=== PATIENT | female | born 1945 | race Caucasian/White ===

== ENCOUNTER 2017-09-21 11:24 | Emergency (ER) | payer MEDICARE, BC ==
--- NOTE | 2017-09-21 11:58 | ED ---
General Adult HPI - General Chief complaint: Recheck/Abnormal Lab/Rx Stated complaint: HIGH BLOOD PRESSURE Time Seen by Provider: 09/21/17 11:25 Source: patient, RN notes reviewed Mode of arrival: ambulatory Limitations: no limitations - History of Present Illness Initial comments: This is a 72-year-old female presents emergency department with past medical history significant for cardiac stent placement. Patient states she comes in today because she has been monitoring her blood pressure and it was elevated today. Patient states she was asymptomatic. Patient denies any chest pain or palpitations. Patient denies any headache patient denies blurred vision patient denies any numbness weakness. Patient denies any recent fever chills or cough. Patient states she has been fighting a little bit of a sinus infection. Patient denies any abdominal pain patient denies nausea vomiting. Patient denies any recent injury or trauma. - Related Data Home Medications Medication Instructions Recorded Confirmed ALPRAZolam [Xanax] 0.25 mg PO HS PRN 09/13/15 09/21/17 Aspirin [Adult Low Dose Aspirin EC] 81 mg PO DAILY 09/13/15 09/21/17 Carvedilol [Coreg] 3.125 mg PO BID 09/13/15 09/21/17 Docusate Sodium [Dok] 100 mg PO HS PRN 09/13/15 09/21/17 L.acidoph,Paracasei, B.lactis 1 tab PO DAILY 09/13/15 09/21/17 [Probiotic] Ubidecarenone [Co Q-10] 100 mg PO DAILY 09/13/15 09/21/17 Vit A/Vit C/Vit E/Zinc/Copper 1 tab PO DAILY 09/13/15 09/21/17 [ICAPS SOFTGEL] Atorvastatin [Lipitor] 40 mg PO DAILY 09/21/17 09/21/17 Escitalopram [Lexapro] 20 mg PO DAILY 09/21/17 09/21/17 Magnesium Oxide [Mag-Ox] 400 mg PO DAILY 09/21/17 09/21/17 Nitroglycerin Sl Tabs [Nitrostat] 0.4 mg SUBLINGUAL Q5M PRN 09/21/17 09/21/17 Ticagrelor [Brilinta] 90 mg PO BID 09/21/17 09/21/17 Vitamin D3 1600u/Calcium 1200u 2 tab PO DAILY 09/21/17 09/21/17 Previous Rx's Medication Instructions Recorded Lisinopril [Zestril] 10 mg PO DAILY #7 tab 09/21/17 Allergies Allergy/AdvReac Type Severity Reaction Status Date / Time hydromorphone HCl Allergy Nausea & Verified 09/21/17 12:36 [From Dilaudid] Vomiting ketorolac tromethamine Allergy Rash/Hives Verified 09/21/17 12:36 [From Toradol] shellfish derived [Shellfish] Allergy Itching Verified 09/21/17 12:36 levofloxacin [From Levaquin] AdvReac Rash/Hives Verified 09/21/17 12:36 Review of Systems ROS Statement: Those systems with pertinent positive or pertinent negative responses have been documented in the HPI. ROS Other: All systems not noted in ROS Statement are negative. Past Medical History Past Medical History: Hyperlipidemia, Hypertension Additional Past Medical History / Comment(s): HX OF STRESS INDUCED CARDIOMYOPATHY, HX OF STOMACH ULCER, CURRENT ABDOMINAL PAIN History of Any Multi-Drug Resistant Organisms: None Reported Past Surgical History: Back Surgery, Bladder Surgery, Heart Catheterization Additional Past Surgical History / Comment(s): LEFT KIDNEY SX R/T CONGENITAL BLOCKAGE, GUM SX, EGD Past Anesthesia/Blood Transfusion Reactions: No Reported Reaction Past Psychological History: Anxiety Smoking Status: Former smoker Past Alcohol Use History: Occasional Past Drug Use History: None Reported General Exam - General Exam Comments Initial Comments: GENERAL: Patient is well-developed and well-nourished. Patient is nontoxic and well- hydrated and is in no acute distress. ENT: Neck is soft and supple. No significant lymphadenopathy is noted. Oropharynx is clear. Moist mucous membranes. Neck has full range of motion without eliciting any pain. EYES: The sclera were anicteric and conjunctiva were pink and moist. Extraocular movements were intact and pupils were equal round and reactive to light. Eyelids were unremarkable. PULMONARY: Unlabored respirations. Good breath sounds bilaterally. No audible rales rhonchi or wheezing was noted. CARDIOVASCULAR: There is a regular rate and rhythm without any murmurs gallops or rubs. ABDOMEN: Soft and nontender with normal bowel sounds. No palpable organomegaly was noted. There is no palpable pulsatile mass. SKIN: Skin is clear with no lesions or rashes and otherwise unremarkable. NEUROLOGIC: Patient is alert and oriented x3. Cranial nerves II through XII are grossly intact. Motor and sensory are also intact. Normal speech, volume and content. Symmetrical smile. MUSCULOSKELETAL: Normal extremities with adequate strength and full range of motion. No lower extremity swelling or edema. No calf tenderness. LYMPHATICS: No significant lymphadenopathy is noted PSYCHIATRIC: Normal psychiatric evaluation. Normal interpersonal interactions appears functionally intact in deals appropriately with others. No signs of depression. No signs of anxiety. Limitations: no limitations Course Vital Signs 09/21/17 09/21/17 09/21/17 11:46 12:07 13:00 Temperature 98.3 F Pulse Rate 62 67 57 L Respiratory 16 18 16 Rate Blood Pressure 183/88 168/89 173/92 O2 Sat by Pulse 99 96 98 Oximetry 09/21/17 13:56 Temperature Pulse Rate 63 Respiratory 16 Rate Blood Pressure 159/65 O2 Sat by Pulse 99 Oximetry Medical Decision Making - Medical Decision Making EKG shows sinus bradycardia 59 bpm [place] interval is 182 QRS is 90 QT interval 410 QTC is 45. Patient's EKG shows no ST segment elevation or depression or T wave abnormalities are noted. Chest x-ray shows no acute abnormality. Patient's blood pressure came down some hydralazine. Patient is asymptomatic. - Lab Data Result diagrams: 09/21/17 12:05 09/21/17 12:05 Lab Results 09/21/17 09/21/17 09/21/17 Range/Units 12:05 12:05 12:05 WBC 3.6 L (3.8-10.6) k/uL RBC 4.15 (3.80-5.40) m/uL Hgb 13.6 (11.4-16.0) gm/dL Hct 41.8 (34.0-46.0) % MCV 100.8 H (80.0-100.0) fL MCH 32.8 (25.0-35.0) pg MCHC 32.6 (31.0-37.0) g/dL RDW 13.6 (11.5-15.5) % Plt Count 165 (150-450) k/uL Neutrophils % 61 % Lymphocytes % 25 % Monocytes % 8 % Eosinophils % 3 % Basophils % 1 % Neutrophils # 2.2 (1.3-7.7) k/uL Lymphocytes # 0.9 L (1.0-4.8) k/uL Monocytes # 0.3 (0-1.0) k/uL Eosinophils # 0.1 (0-0.7) k/uL Basophils # 0.0 (0-0.2) k/uL PT (9.0-12.0) sec INR (<1.2) APTT (22.0-30.0) sec Sodium 137 (137-145) mmol/L Potassium 4.6 (3.5-5.1) mmol/L Chloride 102 (98-107) mmol/L Carbon Dioxide 27 (22-30) mmol/L Anion Gap 8 mmol/L BUN 16 (7-17) mg/dL Creatinine 0.67 (0.52-1.04) mg/dL Est GFR (MDRD) Af Amer >60 (>60 ml/min/1.73 sqM) Est GFR (MDRD) Non-Af >60 (>60 ml/min/1.73 sqM) Glucose 106 H (74-99) mg/dL Calcium 9.7 (8.4-10.2) mg/dL Magnesium 1.9 (1.6-2.3) mg/dL Total Bilirubin 1.0 (0.2-1.3) mg/dL AST 31 (14-36) U/L ALT 38 (9-52) U/L Alkaline Phosphatase 80 (38-126) U/L Total Creatine Kinase 50 (30-135) U/L CK-MB (CK-2) 1.0 (0.0-2.4) ng/mL CK-MB (CK-2) Rel Index 2.0 Troponin I <0.012 (0.000-0.034) ng/mL Total Protein 6.9 (6.3-8.2) g/dL Albumin 4.1 (3.5-5.0) g/dL 09/21/17 Range/Units 12:05 WBC (3.8-10.6) k/uL RBC (3.80-5.40) m/uL Hgb (11.4-16.0) gm/dL Hct (34.0-46.0) % MCV (80.0-100.0) fL MCH (25.0-35.0) pg MCHC (31.0-37.0) g/dL RDW (11.5-15.5) % Plt Count (150-450) k/uL Neutrophils % % Lymphocytes % % Monocytes % % Eosinophils % % Basophils % % Neutrophils # (1.3-7.7) k/uL Lymphocytes # (1.0-4.8) k/uL Monocytes # (0-1.0) k/uL Eosinophils # (0-0.7) k/uL Basophils # (0-0.2) k/uL PT 9.8 (9.0-12.0) sec INR 1.0 (<1.2) APTT 24.7 (22.0-30.0) sec Sodium (137-145) mmol/L Potassium (3.5-5.1) mmol/L Chloride (98-107) mmol/L Carbon Dioxide (22-30) mmol/L Anion Gap mmol/L BUN (7-17) mg/dL Creatinine (0.52-1.04) mg/dL Est GFR (MDRD) Af Amer (>60 ml/min/1.73 sqM) Est GFR (MDRD) Non-Af (>60 ml/min/1.73 sqM) Glucose (74-99) mg/dL Calcium (8.4-10.2) mg/dL Magnesium (1.6-2.3) mg/dL Total Bilirubin (0.2-1.3) mg/dL AST (14-36) U/L ALT (9-52) U/L Alkaline Phosphatase (38-126) U/L Total Creatine Kinase (30-135) U/L CK-MB (CK-2) (0.0-2.4) ng/mL CK-MB (CK-2) Rel Index Troponin I (0.000-0.034) ng/mL Total Protein (6.3-8.2) g/dL Albumin (3.5-5.0) g/dL Disposition Clinical Impression: Hypertension Disposition: HOME SELF-CARE Condition: Good Instructions: Hypertension (ED) Prescriptions: Lisinopril [Zestril] 10 mg PO DAILY #7 tab Referrals: Jose Cuenca DO [Primary Care Provider] - 1-2 days Time of Disposition: 14:00
[2017-09-21] MEDS: hydrALAZINE HCL 20 MG/ML 1 ML VIAL IVP STA ×3 (12:13→13:34)
[2017-09-21 12:20] LABS: Basophils % (A) 1 %; Eosinophils # (A) 0.1 k/uL (0-0.7); Eosinophils % (A) 3 %; HCT 41.8 % (34.0-46.0); HGB 13.6 gm/dL (11.4-16.0); Lymphocytes # (A) 0.9 k/uL (1.0-4.8); Lymphocytes % (A) 25 %; MCH 32.8 pg (25.0-35.0); MCHC 32.6 g/dL (31.0-37.0); MCV 100.8 fL (80.0-100.0); Mean Platelet Volume 7.9; Monocytes # (A) 0.3 k/uL (0-1.0); Monocytes % (A) 8 %; Neutrophils # (A) 2.2 k/uL (1.3-7.7); Neutrophils % (A) 61 %; Platelet Count 165 k/uL (150-450); RBC 4.15 m/uL (3.80-5.40); RDW 13.6 % (11.5-15.5); WBC 3.6 k/uL (3.8-10.6)
[2017-09-21 12:30] LABS: Partial Thromboplastin Time 24.7 sec (22.0-30.0); Prothrombin Time 9.8 sec (9.0-12.0)
[2017-09-21 12:32] LABS: ALT 38 U/L (9-52); AST 31 U/L (14-36); Albumin 4.1 g/dL (3.5-5.0); Alkaline Phosphatase 80 U/L (38-126); Anion Gap 8 mmol/L; Blood Urea Nitrogen 16 mg/dL (7-17); Calcium 9.7 mg/dL (8.4-10.2); Carbon Dioxide 27 mmol/L (22-30); Chloride 102 mmol/L (98-107); Glucose 106 mg/dL (74-99); Magnesium 1.9 mg/dL (1.6-2.3); Potassium 4.6 mmol/L (3.5-5.1); Sodium 137 mmol/L (137-145); Total Protein 6.9 g/dL (6.3-8.2)
[2017-09-21 12:44] LABS: Creatine Kinase 50 U/L (30-135)
[2017-09-21 12:57] LABS: Troponin I <0.012 ng/mL (0.000-0.034)
[2017-09-21 13:03] VITALS: RESP 16
--- NOTE | 2017-09-21 13:05 | XR ---
EXAMINATION TYPE: XR chest 2V DATE OF EXAM: 09/21/2017 COMPARISON: NONE HISTORY: Shortness of breath TECHNIQUE: Frontal and lateral views of the chest are obtained. FINDINGS: Scattered senescent parenchymal changes noted. Hyperinflation compatible with COPD. No evidence for infiltrate. No evidence for atelectasis. Heart size is stable. Mediastinal structures are stable and grossly unremarkable. No evidence for hilar prominence. Degenerative changes dorsal spine. IMPRESSION: 1. No evidence for acute pulmonary disease.
[2017-09-21 14:23] VITALS: BP 156/71; PULSE 79; TEMP 96.9
== END 2017-09-21 14:25 | disposition home or self-care (01) ==
LOC: EC 11:24
DX: I10 Essential (primary) hypertension (principal); R00.1 Bradycardia, unspecified; J32.9 Chronic sinusitis, unspecified; E78.5 Hyperlipidemia, unspecified; F41.9 Anxiety disorder, unspecified; Z87.891 Personal history of nicotine dependence; Z79.82 Long term (current) use of aspirin; Z79.899 Other long term (current) drug therapy; Z88.1 Allergy status to other antibiotic agents; Z88.5 Allergy status to narcotic agent; Z88.6 Allergy status to analgesic agent; Z91.013 Allergy to seafood; Z95.818 Presence of other cardiac implants and grafts
CPT/HCPCS: 36415; 93005; 80053; 82550; 82553; 83735; 84484; 85025; 85610; 85730; 71046; 99284; 96374; 96376 ×2; J0360

== ENCOUNTER → 2017-10-15 | Outpatient (CLI) | payer MEDICARE, BC ==
[2017-10-15 09:35] LABS: ALT 28 U/L (9-52); AST 26 U/L (14-36); Alkaline Phosphatase 67 U/L (38-126); Anion Gap 9 mmol/L; Bilirubin, Delta 0.2 mg/dL (0.0-0.2); Bilirubin,Unconjugated 0.2 mg/dL (0.0-1.1); Blood Urea Nitrogen 13 mg/dL (7-17); Calcium 8.9 mg/dL (8.4-10.2); Carbon Dioxide 31 mmol/L (22-30); Chloride 101 mmol/L (98-107); Cholesterol 185 mg/dL (<200); Glucose 88 mg/dL (74-99); HDL Cholesterol 59 mg/dL (40-60); LDL Cholesterol,Calculated 78 mg/dL (0-99); Potassium 4.3 mmol/L (3.5-5.1); Sodium 141 mmol/L (137-145); Total Bilirubin 0.4 mg/dL (0.2-1.3); Total Protein 6.8 g/dL (6.3-8.2); Triglycerides 241 mg/dL (<150)
== END | disposition home or self-care (01) ==
LOC: LABWHC1 08:41
PROVIDERS: ATTEND Internal Medicine
DX: E78.5 Hyperlipidemia, unspecified (principal); I25.10 Atherosclerotic heart disease of native coronary artery without angina pectoris
CPT/HCPCS: 36415; 80048; 80061; 80076; 83880

== ENCOUNTER → 2018-10-12 | Outpatient (CLI) | payer MEDICARE, BC ==
[2018-10-12 16:42] LABS: Bilirubin, Conjugated 0.2 mg/dL (0.20-0.40); Bilirubin,Unconjugated 0.7 mg/dL; LDL Cholesterol,Calculated 80.6 mg/dL (0.0-131.0); Total Bilirubin 0.9 mg/dL (0.2-1.2); VLDL Calculation 25.4 mg/dL (5.00-40.00)
== END | disposition home or self-care (01) ==
LOC: LABWHC1 08:16
PROVIDERS: ATTEND Internal Medicine
DX: E78.5 Hyperlipidemia, unspecified (principal)
CPT/HCPCS: 36415; 80061; 80076

== ENCOUNTER → 2019-01-24 | Outpatient (CLI) | payer MEDICARE, BC ==
[2019-01-24 18:46] LABS: T4, Free (Free Thyroxine) 0.9 ng/dL (0.80-1.80)
== END ==
LOC: LABWHC1 13:14
PROVIDERS: ATTEND Nurse Practitioner Adult Health
DX: R53.83 Other fatigue (principal)
CPT/HCPCS: 36415; 84439; 84443

== ENCOUNTER → 2019-10-11 | Outpatient (CLI) | payer MEDICARE, BC ==
[2019-10-11 17:36] LABS: ALT 24 U/L (8-44); AST 26 U/L (13-35); Albumin/Globulin Ratio 2.05 (1.60-3.17); Alkaline Phosphatase 82 U/L (41-126); Bilirubin, Conjugated <0.20 mg/dL (0.20-0.40); Chol/HDL Ratio 3.46; Cholesterol 204 mg/dL (0-200); LDL Cholesterol,Calculated 101.8 mg/dL (0.0-131.0); Total Bilirubin 0.7 mg/dL (0.2-1.2); Total Protein 6.1 g/dL (6.2-8.2)
== END | disposition home or self-care (01) ==
LOC: LABWHC1 08:13
PROVIDERS: ATTEND Internal Medicine
DX: E78.5 Hyperlipidemia, unspecified (principal)
CPT/HCPCS: 36415; 80061; 80076

== ENCOUNTER 2019-10-17 08:46 | Observation (INO) | payer MEDICARE, BC ==
[2019-10-17] MEDS ORDERED: NITROGLYCERIN OINT 1 INCH/GM PACKET TOPICAL STA (09:33)
[2019-10-17] MEDS ORDERED: ASPIRIN 81 MG PO STA (09:33)
--- NOTE | 2019-10-17 09:37 | ED ---
General Adult HPI - General Chief complaint: Chest Pain Stated complaint: Chest discomfort/cough Time Seen by Provider: 10/17/19 09:02 Source: patient, RN notes reviewed Mode of arrival: ambulatory Limitations: no limitations - History of Present Illness Initial comments: Patient is a pleasant 74-year-old female presenting to the emergency Department with complaints of chest discomfort. Onset of symptoms was this morning. Symptoms lasted less than a couple of hours. Discomfort is now hours ago. Patient had pressure in her chest with some radiation towards the right arm. No dyspnea or nausea or sweating. No history of similar symptoms previously. Discomfort is now resolved. Patient has had a mild cough and postnasal drip over the past couple of days. Patient had recent ALLERGY injection. - Related Data Home Medications Medication Instructions Recorded Confirmed ALPRAZolam [Xanax] 0.25 mg PO HS PRN 09/13/15 09/21/17 Aspirin [Adult Low Dose Aspirin EC] 81 mg PO DAILY 09/13/15 09/21/17 Carvedilol [Coreg] 3.125 mg PO BID 09/13/15 09/21/17 Docusate Sodium [Dok] 100 mg PO HS PRN 09/13/15 09/21/17 L.acidoph,Paracasei, B.lactis 1 tab PO DAILY 09/13/15 09/21/17 [Probiotic] Ubidecarenone [Co Q-10] 100 mg PO DAILY 09/13/15 09/21/17 Vit A/Vit C/Vit E/Zinc/Copper 1 tab PO DAILY 09/13/15 09/21/17 [ICAPS SOFTGEL] Atorvastatin [Lipitor] 40 mg PO DAILY 09/21/17 09/21/17 Escitalopram [Lexapro] 20 mg PO DAILY 09/21/17 09/21/17 Magnesium Oxide [Mag-Ox] 400 mg PO DAILY 09/21/17 09/21/17 Nitroglycerin Sl Tabs [Nitrostat] 0.4 mg SUBLINGUAL Q5M PRN 09/21/17 09/21/17 Ticagrelor [Brilinta] 90 mg PO BID 09/21/17 09/21/17 Vitamin D3 1600u/Calcium 1200u 2 tab PO DAILY 09/21/17 09/21/17 Previous Rx's Medication Instructions Recorded Lisinopril [Zestril] 10 mg PO DAILY #7 tab 09/21/17 Allergies Allergy/AdvReac Type Severity Reaction Status Date / Time hydromorphone HCl Allergy Nausea & Verified 10/17/19 08:53 [From Dilaudid] Vomiting ketorolac tromethamine Allergy Rash/Hives Verified 10/17/19 08:53 [From Toradol] shellfish derived [Shellfish] Allergy Itching Verified 10/17/19 08:53 levofloxacin [From Levaquin] AdvReac Rash/Hives Verified 10/17/19 08:53 Review of Systems ROS Statement: Those systems with pertinent positive or pertinent negative responses have been documented in the HPI. ROS Other: All systems not noted in ROS Statement are negative. Constitutional: Denies: fever Eyes: Denies: eye pain ENT: Denies: ear pain Respiratory: Reports: as per HPI, cough. Denies: dyspnea Cardiovascular: Reports: chest pain Endocrine: Denies: fatigue Gastrointestinal: Denies: abdominal pain Genitourinary: Denies: dysuria Musculoskeletal: Denies: back pain Skin: Denies: rash Neurological: Denies: weakness Past Medical History Past Medical History: Hyperlipidemia, Hypertension Additional Past Medical History / Comment(s): HX OF STRESS INDUCED CARDIOMYOPATHY, HX OF STOMACH ULCER, CURRENT ABDOMINAL PAIN History of Any Multi-Drug Resistant Organisms: None Reported Past Surgical History: Back Surgery, Bladder Surgery, Heart Catheterization, Heart Catheterization With Stent Additional Past Surgical History / Comment(s): LEFT KIDNEY SX R/T CONGENITAL BLOCKAGE, GUM SX, EGD Past Anesthesia/Blood Transfusion Reactions: No Reported Reaction Past Psychological History: Anxiety Smoking Status: Former smoker Past Alcohol Use History: None Reported Past Drug Use History: None Reported General Exam Limitations: no limitations General appearance: alert, in no apparent distress Head exam: Present: normocephalic Eye exam: Present: normal appearance Neck exam: Present: normal inspection Respiratory exam: Present: normal lung sounds bilaterally. Absent: chest wall tenderness Cardiovascular Exam: Present: regular rate, normal rhythm Expanded Peripheral pulses: 2+: Radial (R), Radial (L), Posterior Tibialis (R), Posterior Tibialis (L) GI/Abdominal exam: Present: soft. Absent: distended, tenderness Extremities exam: Present: normal inspection. Absent: pedal edema, calf tenderness Neurological exam: Present: alert Psychiatric exam: Present: normal affect, normal mood Skin exam: Present: normal color Course Vital Signs 10/17/19 10/17/19 08:53 10:00 Temperature 98.4 F Pulse Rate 94 87 Respiratory 18 18 Rate Blood Pressure 158/67 136/78 O2 Sat by Pulse 100 94 L Oximetry EKG Findings - EKG Comments: EKG Findings:: Normal sinus rhythm 84. [place] 180. QRS 90. QT 372. QTC 439. Normal axis. Normal QRS. No acute ST elevation. Medical Decision Making - Medical Decision Making Patient reevaluated and resting comfortably in bed. Patient updated on results and plan. Dr. Cuenca has been paged for admission of this patient. - Lab Data Result diagrams: 10/17/19 09:23 10/17/19 09:23 Lab Results 10/17/19 10/17/19 10/17/19 Range/Units 09:23 09:23 09:23 WBC 3.2 L (3.8-10.6) k/uL RBC 3.90 (3.80-5.40) m/uL Hgb 12.7 (11.4-16.0) gm/dL Hct 37.4 (34.0-46.0) % MCV 95.9 (80.0-100.0) fL MCH 32.5 (25.0-35.0) pg MCHC 33.9 (31.0-37.0) g/dL RDW 12.2 (11.5-15.5) % Plt Count 151 (150-450) k/uL Neutrophils % 68 % Lymphocytes % 14 % Monocytes % 11 % Eosinophils % 3 % Basophils % 2 % Neutrophils # 2.2 (1.3-7.7) k/uL Lymphocytes # 0.4 L (1.0-4.8) k/uL Monocytes # 0.3 (0-1.0) k/uL Eosinophils # 0.1 (0-0.7) k/uL Basophils # 0.1 (0-0.2) k/uL PT 9.6 (9.0-12.0) sec INR 0.9 (<1.2) APTT 25.5 (22.0-30.0) sec Sodium 133 L (137-145) mmol/L Potassium 4.2 (3.5-5.1) mmol/L Chloride 98 (98-107) mmol/L Carbon Dioxide 26 (22-30) mmol/L Anion Gap 9 mmol/L BUN 10 (7-17) mg/dL Creatinine 0.56 (0.52-1.04) mg/dL Est GFR (CKD-EPI)AfAm >90 (>60 ml/min/1.73 sqM) Est GFR (CKD-EPI)NonAf >90 (>60 ml/min/1.73 sqM) Glucose 114 H (74-99) mg/dL Calcium 9.1 (8.4-10.2) mg/dL Magnesium 1.7 (1.6-2.3) mg/dL Total Bilirubin 0.8 (0.2-1.3) mg/dL AST 30 (14-36) U/L ALT 20 (4-34) U/L Alkaline Phosphatase 72 (38-126) U/L Troponin I (0.000-0.034) ng/mL Total Protein 6.9 (6.3-8.2) g/dL Albumin 4.0 (3.5-5.0) g/dL 10/17/19 Range/Units 09:23 WBC (3.8-10.6) k/uL RBC (3.80-5.40) m/uL Hgb (11.4-16.0) gm/dL Hct (34.0-46.0) % MCV (80.0-100.0) fL MCH (25.0-35.0) pg MCHC (31.0-37.0) g/dL RDW (11.5-15.5) % Plt Count (150-450) k/uL Neutrophils % % Lymphocytes % % Monocytes % % Eosinophils % % Basophils % % Neutrophils # (1.3-7.7) k/uL Lymphocytes # (1.0-4.8) k/uL Monocytes # (0-1.0) k/uL Eosinophils # (0-0.7) k/uL Basophils # (0-0.2) k/uL PT (9.0-12.0) sec INR (<1.2) APTT (22.0-30.0) sec Sodium (137-145) mmol/L Potassium (3.5-5.1) mmol/L Chloride (98-107) mmol/L Carbon Dioxide (22-30) mmol/L Anion Gap mmol/L BUN (7-17) mg/dL Creatinine (0.52-1.04) mg/dL Est GFR (CKD-EPI)AfAm (>60 ml/min/1.73 sqM) Est GFR (CKD-EPI)NonAf (>60 ml/min/1.73 sqM) Glucose (74-99) mg/dL Calcium (8.4-10.2) mg/dL Magnesium (1.6-2.3) mg/dL Total Bilirubin (0.2-1.3) mg/dL AST (14-36) U/L ALT (4-34) U/L Alkaline Phosphatase (38-126) U/L Troponin I <0.012 (0.000-0.034) ng/mL Total Protein (6.3-8.2) g/dL Albumin (3.5-5.0) g/dL - Radiology Data Radiology results: image reviewed (Chest x-ray shows no acute pulmonary process. Some hyperinflation, correlate for COPD.) Disposition Clinical Impression: Chest pain Disposition: ADMITTED IP TO THIS HOSP Is patient prescribed a controlled substance at d/c from ED?: No Referrals: Jose Cuenca DO [Primary Care Provider] - 1-2 days Decision Time: 11:38
[2019-10-17] MEDS ORDERED: ACETAMINOPHEN TAB 500 MG TAB PO STA (09:43)
[2019-10-17 10:00] LABS: INR 0.9 (<1.2); Partial Thromboplastin Time 25.5 sec (22.0-30.0); Prothrombin Time 9.6 sec (9.0-12.0)
[2019-10-17 10:01] LABS: ALT 20 U/L (4-34); AST 30 U/L (14-36); African American GFR (CKD) >90 (>60 ml/min/1.73 sqM); Alkaline Phosphatase 72 U/L (38-126); Anion Gap 9 mmol/L; Blood Urea Nitrogen 10 mg/dL (7-17); Calcium 9.1 mg/dL (8.4-10.2); Carbon Dioxide 26 mmol/L (22-30); Chloride 98 mmol/L (98-107); Glucose 114 mg/dL (74-99); Magnesium 1.7 mg/dL (1.6-2.3); Non-African American GFR(CKD) >90 (>60 ml/min/1.73 sqM); Potassium 4.2 mmol/L (3.5-5.1); Sodium 133 mmol/L (137-145); Total Bilirubin 0.8 mg/dL (0.2-1.3); Total Protein 6.9 g/dL (6.3-8.2)
--- NOTE | 2019-10-17 10:07 | XR ---
EXAMINATION TYPE: XR chest 2V DATE OF EXAM: 10/17/2019 COMPARISON: 09/21/2017 INDICATION: Chest pain hypertension cough TECHNIQUE: Frontal and lateral views of the chest are obtained. FINDINGS: The heart size is normal. The pulmonary vasculature is normal. The lungs are clear. There may be some hyperinflation flattening the diaphragms. Correlate for COPD IMPRESSION: 1. No acute pulmonary process. 2. Correlate for COPD.
[2019-10-17 10:14] LABS: Basophils # (A) 0.1 k/uL (0-0.2); Basophils % (A) 2 %; Eosinophils # (A) 0.1 k/uL (0-0.7); Eosinophils % (A) 3 %; HCT 37.4 % (34.0-46.0); HGB 12.7 gm/dL (11.4-16.0); Lymphocytes # (A) 0.4 k/uL (1.0-4.8); Lymphocytes % (A) 14 %; MCH 32.5 pg (25.0-35.0); MCHC 33.9 g/dL (31.0-37.0); MCV 95.9 fL (80.0-100.0); Mean Platelet Volume 8.1; Monocytes # (A) 0.3 k/uL (0-1.0); Monocytes % (A) 11 %; Neutrophils # (A) 2.2 k/uL (1.3-7.7); Neutrophils % (A) 68 %; Platelet Count 151 k/uL (150-450); RDW 12.2 % (11.5-15.5); WBC 3.2 k/uL (3.8-10.6)
[2019-10-17] MEDS ORDERED: NITROGLYCERIN SL TABS 0.4 MG TAB SUBLINGUAL PRN (11:38)
[2019-10-17] MEDS ORDERED: MORPHINE SULFATE 4 MG/ML SYRINGE IV STA (12:15)
[2019-10-17] MEDS: NITROGLYCERIN OINT 1 INCH/GM PACKET TOPICAL SCH ×3 (12:16→22:45)
[2019-10-17] MEDS ORDERED: METOCLOPRAMIDE 5 MG/ML 2 ML VIAL IVP STA (16:28)
[2019-10-17] MEDS ORDERED: ONDANSETRON 4 MG TAB PO PRN (19:35)
[2019-10-17] MEDS: ACETAMINOPHEN TAB 325 MG TAB PO PRN (20:06)
[2019-10-17] MEDS ORDERED: ALPRAZolam 0.25 MG TAB PO PRN (21:53)
[2019-10-17] MEDS: APIXABAN 5 MG TAB PO SCH (22:36)
[2019-10-17] MEDS: LOSARTAN 50 MG TAB PO SCH (22:36)
[2019-10-17] MEDS: CARVEDILOL 3.125 MG TAB PO SCH (22:36)
[2019-10-18] MEDS ORDERED: traMADol 50 MG TAB PO PRN (00:30)
[2019-10-18] MEDS: OSELTAMIVIR 75 MG CAP PO SCH ×2 (00:53→10:09)
[2019-10-18 00:58] VITALS: RESP 18
[2019-10-18] MEDS: ACETAMINOPHEN TAB 325 MG TAB PO PRN ×2 (04:32→10:16)
[2019-10-18] MEDS: NITROGLYCERIN OINT 1 INCH/GM PACKET TOPICAL SCH (05:55)
[2019-10-18 07:38] LABS: Cholesterol 170 mg/dL (<200); HDL Cholesterol 50 mg/dL (40-60); LDL Cholesterol,Calculated 94 mg/dL (0-99); Triglycerides 128 mg/dL (<150)
[2019-10-18 07:40] VITALS: BP 99/53; PULSE 93; TEMP 98.2
--- NOTE | 2019-10-18 08:16 | CONS ---
CONSULTATION Collette Beaver is a 74-year-old lady who come into the hospital with one-week history of cough and feeling feverish and tired. She also has underlying hypertension, noted that the diastolic pressure was elevated, felt quite concerned. Following bouts of coughing, she also developed some chest pain. Cough-related chest pain and persistent cough and fever of 102 and also elevated blood pressure were the reason for her arrival to the hospital. After arrival to the observation unit, she had a flu swab which revealed was positive for influenza A. She had apparently a recent stress test within one year. She is known to have CAD, in 2016 underwent stenting of RCA following an MO, details of which are unclear. This happened in [place], [place] and that is where her residential treatment specialist is. She has no chest pain to suggest angina. Her pain in the chest is related to her coughing episodes and this has improved. She has hypertension, CAD, prior PCI. Additionally, she also has paroxysmal atrial fibrillation and takes Eliquis 5 mg b.i.d. At the time of my evaluation, she is resting comfortably without symptoms. PAST MEDICAL HISTORY: Remarkable for: 1. CAD with stenting of RCA with 23 x 2.5 Catrachito stent in June 2016. 2. Paroxsymal atrial fibrillation. 3. The patient has history of back surgery and bladder surgery. Details are unclear. 4. Hypertension. 5. Hyperlipidemia. MEDICATIONS: At home include Eliquis 5 mg b.i.d., Plavix 75 mg daily, Xanax, atorvastatin 40 mg daily, Coreg 3.125 mg b.i.d., Cozaar 50 mg b.i.d., and sublingual nitroglycerin p.r.n. ALLERGIES: She is allergic to LEVAQUIN, DILAUDID, and TORADOL. PHYSICAL EXAMINATION: VITAL SIGNS: Blood pressure is 140/70, pulse rate is about 88 per minute and regular. HEENT: Unremarkable. Fundus was not examined by me. NECK: Supple. There is no JVD. There is a right carotid bruit audible. HEART: Reveals S1, S2 heard normally. No significant rub, murmur or gallop. LUNGS: Reveal bilateral scattered rales over bases. ABDOMEN: Soft. Nontender. LOWER EXTREMITIES: Reveal palpable pulses. No edema. CENTRAL NERVOUS SYSTEM: Grossly within normal limits. EKG reveals sinus mechanism. No acute changes. IMPRESSION: 1. Atypical chest pain related to coughing with musculoskeletal in nature. 2. Influenza A on Tamiflu. 3. History of CAD, stable, with prior stenting of RCA in 2013 with a negative stress test within the last one year in [place]. 4. Paroxysmal atrial fibrillation, in sinus rhythm today. 5. Hypertension. RECOMMENDATIONS: I am recommending that we discontinue aspirin and nitro paste, increase activity, increase oral fluids. The patient can be discharged and follow up with her residential treatment specialist. Carotid Doppler advised. No intervention necessary from a cardiac standpoint. MMODL / IJN: [id number] / [place]
[2019-10-18] MEDS ORDERED: VIT C PO SCH (09:00)
[2019-10-18] MEDS ORDERED: MAGNESIUM OXIDE 400 MG TAB PO SCH (09:00)
[2019-10-18] MEDS ORDERED: VIT A PO SCH (09:00)
[2019-10-18] MEDS ORDERED: ATORVASTATIN 40 MG TAB PO SCH (09:00)
[2019-10-18] MEDS ORDERED: VIT E PO SCH (09:00)
[2019-10-18] MEDS ORDERED: CLOPIDOGREL 75 MG TAB PO SCH (09:00)
[2019-10-18] MEDS ORDERED: NON FORMULARY DRUG (Ubidecarenone [Co Q-10] 100 MG) PO SCH (09:00)
[2019-10-18] MEDS ORDERED: HYDROCHLOROTHIAZIDE 12.5 MG CAP PO SCH (09:00)
[2019-10-18] MEDS ORDERED: ACIDOPH PARACASEI B LACTIS PO SCH (09:00)
[2019-10-18] MEDS ORDERED: CHOLECALCIFEROL 1,000 UNIT TAB PO SCH (09:00)
[2019-10-18] MEDS ORDERED: ZINC PO SCH (09:00)
[2019-10-18] MEDS ORDERED: ASPIRIN 325 MG TAB PO SCH (09:00)
[2019-10-18] MEDS ORDERED: COPPER PO SCH (09:00)
[2019-10-18] MEDS ORDERED: LORATADINE 10 MG TAB PO SCH (09:00)
[2019-10-18] MEDS: LOSARTAN 50 MG TAB PO SCH (10:09)
[2019-10-18] MEDS: APIXABAN 5 MG TAB PO SCH (10:09)
[2019-10-18] MEDS: CARVEDILOL 3.125 MG TAB PO SCH (10:09)
--- NOTE | 2019-10-18 10:41 | P.HPIM ---
History of Present Illness H&P Date: 10/18/19 Chief Complaint: Chest pain History and Physical and Discharge Summary This is a 74-year-old female with history of proximal chronic atrial fibrillatio n, CAD-history of stent, hyperlipidemia, hypertension, hypothyroidism, anxiety, former nicotine dependence, presented to the ER with complaints of midsternal chest discomfort radiating down right arm with symptoms starting that morning accompanied by fever, chills, headache, cough, nasal congestion. Reports recent ALLERGY injection. T-max 102. Tested Positive for influenza A. EKG reporting normal sinus rhythm with nonspecific ST/T-wave. Troponins negative 3. Chest x- ray reporting no acute pulmonary process with some hyperinflation.Tamiflu initiated. Symptoms significantly improved this morning. Denies chest pain, palpitations or shortness of breath. Denies lightheadedness dizziness or focal deficits. Evaluated by cardiology. Carotid Doppler ordered in regards to right carotid bruit. Review of Systems ROS Statement: Those systems with pertinent positive or pertinent negative responses have been documented in the HPI. ROS Other: All systems not noted in ROS Statement are negative. Past Medical History Past Medical History: Atrial Fibrillation, Coronary Artery Disease (CAD), Hyperlipidemia, Hypertension, Thyroid Disorder Additional Past Medical History / Comment(s): HX OF STRESS INDUCED CARDIOMYOPATHY, HX OF STOMACH ULCER History of Any Multi-Drug Resistant Organisms: None Reported Past Surgical History: Back Surgery, Bladder Surgery, Heart Catheterization, Heart Catheterization With Stent Additional Past Surgical History / Comment(s): LEFT KIDNEY SX R/T CONGENITAL BLOCKAGE, GUM SX, EGD Past Anesthesia/Blood Transfusion Reactions: No Reported Reaction Date of Last Stent Placement:: 2016 Past Psychological History: Anxiety Smoking Status: Former smoker Past Alcohol Use History: None Reported Past Drug Use History: None Reported - Past Family History Mother Family Medical History: CVA/TIA, Myocardial Infarction ([place]) Father Family Medical History: Coronary Artery Disease (CAD), Myocardial Infarction ([place]) Brother(s) Additional Family Medical History / Comment(s): brain aneurysm Son(s) Family Medical History: Hyperlipidemia Daughter(s) Family Medical History: No Reported History Medications and Allergies Home Medications Medication Instructions Recorded Confirmed Type ALPRAZolam [Xanax] 0.25 mg PO HS PRN 09/13/15 10/17/19 History Carvedilol [Coreg] 3.125 mg PO BID 09/13/15 10/17/19 History L.acidoph,Paracasei, B.lactis 1 tab PO DAILY 09/13/15 10/17/19 History [Probiotic] Ubidecarenone [Co Q-10] 100 mg PO DAILY 09/13/15 10/17/19 History Vit A/Vit C/Vit E/Zinc/Copper 1 tab PO DAILY 09/13/15 10/17/19 History [ICAPS SOFTGEL] Atorvastatin [Lipitor] 40 mg PO DAILY 09/21/17 10/17/19 History Magnesium Oxide [Mag-Ox] 400 mg PO DAILY 09/21/17 10/17/19 History Nitroglycerin Sl Tabs [Nitrostat] 0.4 mg SUBLINGUAL Q5M PRN 09/21/17 10/17/19 History Apixaban [Eliquis] 5 mg PO BID 10/17/19 10/17/19 History Cholecalciferol [Vitamin D3 (25 1,000 unit PO DAILY 10/17/19 10/17/19 History Mcg = 1000 Iu)] Clopidogrel Bisulfate [Plavix] 75 mg PO DAILY 10/17/19 10/17/19 History Fexofenadine HCl [My Allergy] 180 mg PO DAILY 10/17/19 10/17/19 History Hydrochlorothiazide 12.5 mg PO DAILY 10/17/19 10/17/19 History Losartan [Cozaar] 50 mg PO BID 10/17/19 10/17/19 History Acetaminophen Tab [Tylenol] 650 mg PO Q6HR PRN tab 10/18/19 Rx Oseltamivir [Tamiflu] 75 mg PO Q12HR #8 cap 10/18/19 Rx Allergies Allergy/AdvReac Type Severity Reaction Status Date / Time ketorolac [From Toradol] Allergy Rash/Hives Verified 10/17/19 11:38 levofloxacin [From Levaquin] Allergy Rash/Hives Verified 10/17/19 11:38 mold Allergy Unknown Verified 10/17/19 11:38 shellfish derived [Shellfish] Allergy itching/bur Verified 10/17/19 11:38 preethi hydromorphone [From Dilaudid] AdvReac Nausea Verified 10/17/19 11:38 Physical Exam Vitals: Vital Signs Temp Pulse Pulse Resp BP BP Pulse Ox 10/18/19 05:00 99.6 F 78 18 131/67 94 L 10/18/19 00:00 98.3 F 88 18 106/63 94 L 10/17/19 20:00 99.5 F 86 86 17 145/80 145/75 90 L 10/17/19 19:30 102 F H 10/17/19 19:00 88 21 135/80 94 L 10/17/19 18:00 83 20 155/86 92 L 10/17/19 17:00 80 13 154/75 96 10/17/19 16:00 94 21 164/84 87 L 10/17/19 15:00 78 13 157/91 95 10/17/19 14:00 74 19 140/76 92 L 10/17/19 13:00 71 16 146/78 93 L 10/17/19 12:31 80 17 146/78 94 L 10/17/19 12:00 74 14 136/78 95 10/17/19 11:00 80 24 136/78 98 10/17/19 10:00 87 18 136/78 94 L 10/17/19 08:53 98.4 F 94 18 158/67 100 Intake and Output 10/17/19 10/18/19 10/18/19 22:59 06:59 14:59 Other: Voiding Method Toilet Toilet # Voids 1 1 Weight 75.75 kg PHYSICAL EXAM: VITAL SIGNS: As above GENERAL: Sitting up in bed, no acute distress HEENT: Conjunctivae normal. eyes normal. Oral mucosa moist NECK: No JVD. No thyroid enlargement. No LNs. Right carotid bruit, Doppler pending CARDIOVASCULAR: S1, S2 regular.. No murmur RESPIRATION: Breath sounds diminished in the bases. No rhonchi or crackles. No bronchial breathing. ABDOMEN: Soft, nontender . No guarding. no masses palpable. No ascites, No hepatosplenomegaly.Bowel sounds heard. LEGS: No edema. no swelling PSYCHIATRY: Alert and oriented X3, mood and affect normal. NERVOUS SYSTEM: Cranial N 2-12 grossly normal. Moves all 4 limbs. Diffuse weakness No focal deficits. Strength and sensation grossly intact.. Skin: no lesions, no rash Joints: No active swelling. No inflammation. Lymphatic system. No LN neck axilla. Results CBC & Chem 7: 10/17/19 09:23 10/17/19 09:23 Labs: Abnormal Lab Results - Last 24 Hours (Table) 10/17/19 10/17/19 10/17/19 Range/Units 09:23 09:23 22:41 WBC 3.2 L (3.8-10.6) k/uL Lymphocytes # 0.4 L (1.0-4.8) k/uL Sodium 133 L (137-145) mmol/L Glucose 114 H (74-99) mg/dL Influenza Type A RNA Detected H (Not Detectd) Thrombosis Risk Factor Assmnt - Choose All That Apply Any of the Below Risk Factors Present?: No Other Risk Factors: Yes Each Risk Factor Represents 2 Points: Age 61-74 years Other congenital or acquired thrombophilia - If yes, enter type in comment: No Thrombosis Risk Factor Assessment Total Risk Factor Score: 2 Thrombosis Risk Factor Assessment Level: Low Risk Assessment and Plan Assessment: Acute chest pain, acute coronary syndrome ruled out as per cardiology Right carotid bruit, carotid Doppler pending Paroximal atrial fibrillation CAD, history of stent Hyperlipidemia Hypertension Hypothyroidism Anxiety Former nicotine dependence Plan: Continue current medication regime ,monitoring and symptomatic treatment. Significant clinical improvement .Continue Tamiflu, gentle IV fluid hydration. Patient will be discharged home today in a stable condition with guarded prognosis pending cardiology final DC recommendations/clearance and carotid Doppler results. The impression and plan of care has been dictated as directed. : I performed a history and examination of this patient, discussed the same with the dictator. I agree with the dictator's note ,documented as a scribe. Any additional findings or plans will be noted.
--- NOTE | 2019-10-18 13:48 | US ---
EXAMINATION TYPE: US carotid duplex BILAT DATE OF EXAM: 10/18/2019 COMPARISON: NONE CLINICAL HISTORY: bruit. HTN- controlled with meds. High cholesterol. EXAM MEASUREMENTS: RIGHT: Peak Systolic Velocity (PSV) cm/sec ----- Right CCA: 100.2 ----- Right ICA: 103.1 ----- Right ECA: 238.9 ICA/CCA ratio: 1.0 RIGHT: End Diastole cm/sec ----- Right CCA: 21.7 ----- Right ICA: 17.3 ----- Right ECA: 0.0 LEFT: Peak Systolic Velocity (PSV) cm/sec ----- Left CCA: 95.8 ----- Left ICA: 96.3 ----- Left ECA: 161.4 ICA/CCA ratio: 1.0 LEFT: End Diastole cm/sec ----- Left CCA: 20.2 ----- Left ICA: 27.0 ----- Left ECA: 0.0 VERTEBRALS (direction of flow): Right Vertebral: Antegrade Left Vertebral: Antegrade Rhythm: Normal Plaque visualized in bilateral bulbs. Elevated bilateral ECA velocities. Bilateral wall thickening. No significant stenosis. IMPRESSION: Degree of grayscale atheromatous plaque appears discordant with the velocities. Underlying hypertens ion is diffuse the internal carotid artery to common carotid artery ratio. Although values indicate n o significant stenosis there is possible stenosis within both carotid bulbs. Criteria for Assigning % of Stenosis / Diameter reduction (Estimation based on the indirect measurements of the internal carotid artery velocities (ICA PSV). 1. Normal (no stenosis)=ICA PSV < 125 cm/s: ratio < 2.0: ICA EDV<40 cm/s. 2. Less than 50% stenosis=ICA PSV < 125 cm/s: ratio < 2.0: ICA EDV<40 cm/s. 3. 50 to 69% stenosis=ICA PSV of 125 to 230 cm/s: ration 2.0 ? 4.0: ICA EDV 40-100 cm/s. 4. Greater than 70% stenosis to near occlusion= ICA PSV > 230 cm/s: ratio > 4.0: ICA EDV > 100 cm/s. 5. Near occlusion= ICA PSV velocities may be low or undetectable: variable ratio and ICA EDV. 6. Total occlusion=unable to detect flow.
== END 2019-10-18 11:15 | disposition home or self-care (01) ==
LOC: EC 08:46 → 1SOBS 11:38
PROVIDERS: ADMIT Family Medicine; ATTEND Family Medicine
DX: R07.89 Other chest pain (principal); J10.1 Influenza due to other identified influenza virus with other respiratory manifestations; I10 Essential (primary) hypertension; I48.0 Paroxysmal atrial fibrillation; I25.10 Atherosclerotic heart disease of native coronary artery without angina pectoris; E78.5 Hyperlipidemia, unspecified; F41.9 Anxiety disorder, unspecified; Z87.891 Personal history of nicotine dependence; E03.9 Hypothyroidism, unspecified; Z95.5 Presence of coronary angioplasty implant and graft; R09.89 Other specified symptoms and signs involving the circulatory and respiratory systems; Z79.01 Long term (current) use of anticoagulants; Z79.899 Other long term (current) drug therapy; Z79.82 Long term (current) use of aspirin; Z88.1 Allergy status to other antibiotic agents; Z88.5 Allergy status to narcotic agent; Z88.6 Allergy status to analgesic agent; Z91.013 Allergy to seafood
CPT/HCPCS: 93005 ×2; 96374; 96375; 99285; 36415; 80061; 80053; 83735; 84484; 85025; 85610; 85730; 87502; 71046; 93880; G0378 ×2; J2270; J2765

== ENCOUNTER → 2020-06-04 | Outpatient (CLI) | payer MEDICARE, BC ==
[2020-06-06 23:03] LABS: Corn IgG 5.7 mcg/mL (< 2.0); Wheat IgG 10.9 mcg/mL (< 2.0)
[2020-06-06 23:05] LABS: Peanut IgG 3.9 mcg/mL (< 2.0); Pork IgG 4.2 mcg/mL (< 2.0); Soybean IgG 4.1 mcg/mL (< 2.0); Tomato IgG 3.9 mcg/mL (< 2.0)
[2020-06-06 23:06] LABS: Beef IgG 11.2 mcg/mL (< 2.0); Potato IgG 2.4 mcg/mL (< 2.0)
[2020-06-06 23:07] LABS: Chicken Meat IgG 3.2 mcg/mL (< 2.0)
== END | disposition home or self-care (01) ==
LOC: LABWHC1 10:20
PROVIDERS: ATTEND Otolaryngology
DX: L50.0 Allergic urticaria (principal); J30.89 Other allergic rhinitis; B44.89 Other forms of aspergillosis
CPT/HCPCS: 36415; 86001

== ENCOUNTER → 2020-06-19 | Outpatient (CLI) | payer MEDICARE, BC ==
--- NOTE | 2020-06-19 20:00 | CT ---
EXAMINATION TYPE: CT sinus wo con DATE OF EXAM: 06/19/2020 COMPARISON: None HISTORY: Chronic sinusitis CT DLP: 593.70 mGycm CONTRAST: 0 mL of Isovue 300 The paranasal sinuses are examined in the axial plane at 2 mm thick sections. Reconstructed images i n the coronal plane were obtained. The maxillary sinuses are clear. The ethmoid air cells are clear. The sphenoid sinuses are clear. The frontal sinuses are clear. The septum is evaluated. Septum is essentially midline. . Uncinectomies been performed. Ostiomeatal unit regions are widely patent. IMPRESSIONS: 1. Normal surgical paranasal sinus study
== END | disposition home or self-care (01) ==
LOC: RADCTMAIN 09:01
PROVIDERS: ATTEND Otolaryngology
DX: J32.0 Chronic maxillary sinusitis (principal); Z98.890 Other specified postprocedural states
CPT/HCPCS: 70486

== ENCOUNTER → 2020-10-17 | Outpatient (CLI) | payer MEDICARE, BC ==
--- NOTE | 2020-10-18 08:00 | CT ---
EXAMINATION TYPE: CT urogram wo/w con DATE OF EXAM: 10/17/2020 COMPARISON: None HISTORY: left flank pain CT DLP: 1362.2 mGycm CONTRAST: Performed and without and with IV Contrast, patient injected with 100 mL of Isovue 300. CT Urography was performed with unenhanced followed by enhanced images of the kidneys, ureters and ur inary bladder. Delayed images were obtained. 3d reconstruction was performed at a separate work sta tion. FINDINGS: KIDNEYS/BLADDER: There is a simple cyst upper pole right kidney measuring 2.4 cm. There is no evidenc e for left renal mass. There is no evidence for nephrolithiasis. There is mild left-sided hydronephro sis with prominence of the renal pelvis. I cannot exclude a degree of the acquired or congenital left UPJ obstruction. No evidence for right-sided hydronephrosis. Ureters appear symmetric. Urinary bladd er is unremarkable. LUNG BASES-: Small nonspecific 3 mm nodular density left lung base. No infiltrate. LIVER/GB: No calcified gallstones. No space occupying hepatic lesion. Biliary tree is of normal ca liber. PANCREAS: No inflammation. No distinct mass. SPLEEN: No splenic enlargement. No lesion seen. ADRENALS: No nodule. No thickening. BOWEL: Normal appendix. Normal bowel caliber. No inflammation. Sigmoid diverticulosis without diver ticulitis. GENITAL ORGANS: No gross abnormality. LYMPH NODES: No greater than 1cm abdominal or pelvic lymph nodes are appreciated. AORTA: No significant abnormality. OSSEOUS STRUCTURES: No significant abnormality is seen. OTHER: No significant additional abnormality is seen. IMPRESSION: 1. No solid renal lesion identified. Simple cyst upper pole right kidney. 2. There is mild left-sided hydronephrosis with prominence of the renal pelvis. I cannot exclude a de gree of the acquired or congenital left UPJ obstruction.
== END | disposition home or self-care (01) ==
LOC: RADCTMAIN 15:44
PROVIDERS: ATTEND Urology
DX: N28.1 Cyst of kidney, acquired (principal); N13.30 Unspecified hydronephrosis; Q62.11 Congenital occlusion of ureteropelvic junction
CPT/HCPCS: 74178; 74400; Q9967

== ENCOUNTER → 2020-11-07 | Outpatient (CLI) | payer MEDICARE, BC ==
[~2020-11-07] MED LIST: FUROSEMIDE 10 MG/ML 2 ML VIAL IV ONE
--- NOTE | 2020-11-08 11:18 | NM ---
EXAMINATION TYPE: NM lasix renogram DATE OF EXAM: 11/07/2020 COMPARISON: CT urogram 10/17/2020 HISTORY: Q 62.11, Ureteropelvic junction stenosis on the left Following administration of 10.1 mCi Tc 99m MAG3 with 20mg Lasix. Immediate images post injection FINDINGS: Left: 60.6 %. Right: 39.4 %. Max renal flow left: 6 minutes. Max renal flow right: 39.4 minutes. Satisfactory accumulation of radiotracer within both renal collecting systems, collection within the large extrarenal pelvis on the left correlates with CT findings, activity cannot within the left kidn ey is increased likely due to the large collection in the left extrarenal pelvis. The right kidney is also smaller than the left on CT. After the administration of Lasix, there is prompt excretion from both collecting systems. T 1/2 left: 15.7 minutes. T 1/2 right: 19.3 minutes. IMPRESSION: Large extrarenal pelvis on the left shows clearance of the radio pharmaceutical with some delay as co mpared to the right likely due to the large size.
== END ==
LOC: RADNMMAIN 13:48
PROVIDERS: ATTEND Urology
DX: Q62.11 Congenital occlusion of ureteropelvic junction (principal)
CPT/HCPCS: 78708; A9562

== ENCOUNTER → 2021-02-18 | Outpatient (CLI) | payer MEDICARE, BC ==
--- NOTE | 2021-02-18 22:06 | NM ---
EXAMINATION TYPE: NM lasix renogram DATE OF EXAM: 02/18/2021 COMPARISON: CT urogram October 17, 2020 HISTORY: Unspecified hydronephrosis Following administration of 9.86 mCi Tc 99m MAG3 with 20mg Lasix. Immediate images post injection FINDINGS: Dynamic blood flow images redemonstrate satisfactory and symmetric blood flow and corticome dullary uptake in both kidneys. There is satisfactory excretion with persistent prominent extrarenal pelvises greater on the left versus right in size similar to prior studies. Left: 62%. Right: 38%. Max renal flow left: 5.5 minutes. Max renal flow right: 9.6 minutes. Satisfactory accumulation of radiotracer within both renal collecting systems. After the administrati on of Lasix, there is prompt excretion from both collecting systems. Split function as detailed above similar to prior. T 1/2 left: 18 minutes. T 1/2 right: 13 minutes. IMPRESSION: No significant change from prior. Prominent extrarenal pelvises greater on the left witho ut absent or significantly diminished excretion in either kidney. Slight asymmetry to function simila r to prior study.
== END | disposition home or self-care (01) ==
LOC: RADNMMAIN 12:51
PROVIDERS: ATTEND Urology
DX: N13.30 Unspecified hydronephrosis (principal)
CPT/HCPCS: 78708; A9562

== ENCOUNTER → 2021-07-16 | Outpatient (CLI) | payer MEDICARE, BC ==
--- NOTE | 2021-07-18 11:16 | MM ---
Reason for exam: screening (asymptomatic). Last mammogram was performed 1 year and 1 month ago. History: Patient is postmenopausal. Benign excisional biopsy of the left breast, 1992. Took hormonal contraceptives for 2 years. Took estrogen for 3 years. Physical Findings: A clinical breast exam by your physician is recommended on an annual basis and results should be correlated with mammographic findings. MG 3D Screening Mammo W/Cad Bilateral CC and MLO view(s) were taken. Prior study comparison: June 25, 2020, mammogram, performed at [facility]. June 22, 2019, mammogram, performed at [facility]. June 07, 2018, mammogram, performed at [facility]. June 01, 2017, mammogram, performed at [facility]. There are scattered fibroglandular densities. Benign oil cyst calcifications bilaterally. No significant changes when compared with prior studies. ASSESSMENT: Negative, BI-RAD 1 RECOMMENDATION: Routine screening mammogram of both breasts in 1 year.
== END | disposition home or self-care (01) ==
LOC: RADMAMWWP 12:38
PROVIDERS: ATTEND Obstetrics & Gynecology
DX: Z12.31 Encounter for screening mammogram for malignant neoplasm of breast (principal); Z78.0 Asymptomatic menopausal state
CPT/HCPCS: 77063; 77067

== ENCOUNTER 2022-04-01 07:37 | Emergency (ER) | payer MEDICARE, BC ==
[2022-04-01 07:43] VITALS: BP 206/103; PULSE 72; RESP 18; TEMP 98
[2022-04-01] MEDS ORDERED: LIDOCAINE 1% INJ 10MG/ML (5 ML VIAL-PF) SQ ONE (07:52)
[2022-04-01] MEDS ORDERED: ACETAMINOPHEN TAB 500 MG TAB PO STA (07:52)
[2022-04-01] MEDS ORDERED: carvediloL 3.125 MG TAB PO STA (07:52)
[2022-04-01] MEDS ORDERED: DIPH,PERTUS(ACELL)TETVAC-LF 0.5 ML VIAL IM ONE (07:52)
--- NOTE | 2022-04-01 07:57 | ED ---
Wound/Laceration HPI - General Chief Complaint: Wound/Laceration Stated Complaint: hand lac Time Seen by Provider: 04/01/22 07:43 Source: patient, RN notes reviewed Mode of arrival: ambulatory Limitations: no limitations - History of Present Illness Initial Comments: This is a 76-year-old female who presents to the emergency department for a laceration of the right thumb. Patient states that when she woke up this morning, she went to turn off her fan, however she was not wearing her glasses and accidentally hit her thumb against the fan blade as opposed to the off switch. Unsure when her last tetanus vaccine was. She does take Eliquis daily. She also forgot to take her blood pressure medications morning. Denies any fevers, chills, sore throat, cough, dyspnea, chest pain, palpitations, abdominal pain, nausea, vomiting, diarrhea, back pain, or headaches. Extremity Location: Right: Hand (thumb) Place: home Patient Tetanus UTD: No Context: accidental Treatments Prior to Arrival: bandage - Related Data Home Medications Medication Instructions Recorded Confirmed ALPRAZolam [Xanax] 0.25 mg PO HS PRN 09/13/15 10/17/19 L.acidoph,Paracasei, B.lactis 1 tab PO DAILY 09/13/15 10/17/19 [Probiotic] Ubidecarenone [Co Q-10] 100 mg PO DAILY 09/13/15 10/17/19 Vit A/Vit C/Vit E/Zinc/Copper 1 tab PO DAILY 09/13/15 10/17/19 [ICAPS SOFTGEL] carvediloL [Coreg] 3.125 mg PO BID 09/13/15 10/17/19 Atorvastatin [Lipitor] 40 mg PO DAILY 09/21/17 10/17/19 Magnesium Oxide [Mag-Ox] 400 mg PO DAILY 09/21/17 10/17/19 Nitroglycerin Sl Tabs [Nitrostat] 0.4 mg SUBLINGUAL Q5M PRN 09/21/17 10/17/19 Apixaban [Eliquis] 5 mg PO BID 10/17/19 10/17/19 Cholecalciferol [Vitamin D3 (25 1,000 unit PO DAILY 10/17/19 10/17/19 Mcg = 1000 Iu)] Clopidogrel Bisulfate [Plavix] 75 mg PO DAILY 10/17/19 10/17/19 Fexofenadine HCl [My Allergy] 180 mg PO DAILY 10/17/19 10/17/19 Losartan [Cozaar] 50 mg PO BID 10/17/19 10/17/19 hydroCHLOROthiazide 12.5 mg PO DAILY 10/17/19 10/17/19 Previous Rx's Medication Instructions Recorded Acetaminophen Tab [Tylenol] 650 mg PO Q6HR PRN tab 10/18/19 Oseltamivir [Tamiflu] 75 mg PO Q12HR #8 cap 10/18/19 Allergies Allergy/AdvReac Type Severity Reaction Status Date / Time ketorolac [From Toradol] Allergy Rash/Hives Verified 04/01/22 07:43 levofloxacin [From Levaquin] Allergy Rash/Hives Verified 04/01/22 07:43 mold Allergy Unknown Verified 04/01/22 07:43 shellfish derived [Shellfish] Allergy itching/bur Verified 04/01/22 07:43 preethi hydromorphone [From Dilaudid] AdvReac Nausea Verified 04/01/22 07:43 Review of Systems ROS Statement: Those systems with pertinent positive or pertinent negative responses have been documented in the HPI. ROS Other: All systems not noted in ROS Statement are negative. Past Medical History Past Medical History: Atrial Fibrillation, Coronary Artery Disease (CAD), Hyperlipidemia, Hypertension, Thyroid Disorder Additional Past Medical History / Comment(s): HX OF STRESS INDUCED CARDIOMYOPATHY, HX OF STOMACH ULCER History of Any Multi-Drug Resistant Organisms: None Reported Past Surgical History: Back Surgery, Bladder Surgery, Heart Catheterization, Heart Catheterization With Stent Additional Past Surgical History / Comment(s): LEFT KIDNEY SX R/T CONGENITAL BLOCKAGE, GUM SX, EGD Past Anesthesia/Blood Transfusion Reactions: No Reported Reaction Date of Last Stent Placement:: 2016 Past Psychological History: Anxiety Smoking Status: Never smoker Past Alcohol Use History: Occasional Past Drug Use History: None Reported - Past Family History Mother Family Medical History: CVA/TIA, Myocardial Infarction ([place]) Father Family Medical History: Coronary Artery Disease (CAD), Myocardial Infarction ([place]) Brother(s) Additional Family Medical History / Comment(s): brain aneurysm Son(s) Family Medical History: Hyperlipidemia Daughter(s) Family Medical History: No Reported History General Exam Limitations: no limitations General appearance: alert, in no apparent distress Respiratory exam: Present: normal lung sounds bilaterally. Absent: respiratory distress, wheezes, rales, rhonchi, stridor Cardiovascular Exam: Present: regular rate, normal rhythm, normal heart sounds. Absent: systolic murmur, diastolic murmur, rubs, gallop, clicks Neurological exam: Present: alert, oriented X3, CN II-XII intact Psychiatric exam: Present: normal affect, normal mood Skin exam: Present: other (3 lacerations on the palmar aspect of the right thumb. The first laceration as at the base of the DIP joint and is horizontal measuring approximately 1 cm. The laceration above that is a skin flap measuring approximately 2 cm. Superior to that is another horizontal laceration measuring 1 cm.) Course Vital Signs 04/01/22 07:38 Temperature 98 F Pulse Rate 72 Respiratory 18 Rate Blood Pressure 206/103 O2 Sat by Pulse 100 Oximetry Procedures - Laceration Laceration #1 Consent Obtained: verbal consent Indication: laceration Site: hand (right thumb) Size (cm): 1 Description: linear Depth: simple, single layer Anesthetic Used: lidocaine 1% Anesthesia Technique: local infiltration Amount (mls): 1 Type of Sutures: nylon Size of Sutures: 5-0 Number of Sutures: 1 Technique: other (figure 8) Laceration #2 Consent Obtained: verbal consent Indication: laceration Site: hand (right thumb) Size (cm): 2 Description: flap Depth: simple, single layer Anesthetic Used: lidocaine 1% Anesthesia Technique: local infiltration Amount (mls): 1 Type of Sutures: nylon Size of Sutures: 5-0 Number of Sutures: 2 Technique: other (figure 8) Laceration #3 Consent Obtained: verbal consent Indication: laceration Site: hand (right thumb) Size (cm): 1 Description: linear Depth: simple, single layer Anesthetic Used: lidocaine 1% Anesthesia Technique: local infiltration Amount (mls): 1 Type of Sutures: nylon Size of Sutures: 5-0 Number of Sutures: 1 Technique: other (figure 8) Medical Decision Making - Medical Decision Making This is a 76-year-old female who presents to the emergency department for lacerations to the right thumb. Tetanus status was updated. She was given a dose of Coreg in the emergency department, which is the blood pressure medication she takes at home, as her blood pressure was very elevated. Tylenol was administered for pain. The 3 lacerations were repaired with sutures. LET was used to control the bleeding before Exofin could be applied. Exofin was placed on top of the sutures, as the patient continued to have bleeding, likely due to the fact that she is currently on 2 blood thinners. She will take [id number] Tylenol as needed for pain. Starter pack for Tylenol with codeine provided, instructed her to take this with the pain is the most severe and to primarily take it at night, as it will make her drowsy. She will return in 7-10 days for suture removal. Return precautions reviewed in depth, the patient is instructed to return to the emergency department with any new, worsening, or concerning symptoms. Patient verbalized understanding. This case was discussed in detail with the attending ED physician. Presentation, findings, and treatment plan discussed in detail as well. Disposition Clinical Impression: Laceration of thumb Disposition: HOME SELF-CARE Instructions (If sedation given, give patient instructions): Care For Your Stit ches (ED), Skin Adhesive Care (ED) Additional Instructions: Return to the emergency department with any new, worsening, or concerning symptoms and in 7-10 days for suture removal. You may take up to 4 g of Tylenol daily for pain. Take the Tylenol with Codeine when your pain is the most severe and do not drive or operate machinery while taking this. Is patient prescribed a controlled substance at d/c from ED?: No Referrals: Jose Cuenca DO [Primary Care Provider] - 1-2 days
[2022-04-01] MEDS ORDERED: TOPICAL SKIN ADHESIVE 1 EACH AMP TOPICAL ONE ×2 (08:51→09:33)
[2022-04-01] MEDS ORDERED: ACET/COD 300 MG/30 MG STARTER PACK 6 TAB BTL PO STA (09:19)
[2022-04-01] MEDS ORDERED: LIDOCAINE/EPINEPHR/TETRACAINE 5 ML BOTTLE TOPICAL ONE (09:36)
== END 2022-04-01 10:28 | disposition home or self-care (01) ==
LOC: EC 07:37
DX: S61.011A Laceration without foreign body of right thumb without damage to nail, initial encounter (principal); Z23 Encounter for immunization; Z86.73 Personal history of transient ischemic attack (TIA), and cerebral infarction without residual deficits; I25.10 Atherosclerotic heart disease of native coronary artery without angina pectoris; E78.5 Hyperlipidemia, unspecified; I10 Essential (primary) hypertension; E07.9 Disorder of thyroid, unspecified; F41.9 Anxiety disorder, unspecified; Z88.6 Allergy status to analgesic agent; Z88.1 Allergy status to other antibiotic agents; Z88.8 Allergy status to other drugs, medicaments and biological substances; Z91.013 Allergy to seafood; Z88.5 Allergy status to narcotic agent; Z79.899 Other long term (current) drug therapy; W22.8XXA Striking against or struck by other objects, initial encounter
CPT/HCPCS: 90715; 99282; 12002; 90471; J2001

== ENCOUNTER → 2022-06-09 | Outpatient (CLI) | payer MEDICARE, BC ==
[2022-06-09 17:08] LABS: ALT 12 U/L (8-44); AST 23 U/L (13-35); Albumin 4.2 g/dL (3.8-4.9); Albumin/Globulin Ratio 1.56 (1.60-3.17); Alkaline Phosphatase 72 U/L (41-126); Bilirubin, Conjugated <0.20 mg/dL (0.20-0.40); Chol/HDL Ratio 2.91 Ratio; Globulin 2.7 g/dL (1.6-3.3); LDL Cholesterol,Calculated 95.8 mg/dL (0.0-131.0); Total Protein 6.9 g/dL (6.2-8.2); VLDL Calculation 16.44 mg/dL (5.00-40.00)
== END | disposition home or self-care (01) ==
LOC: LABWHC1 08:23
PROVIDERS: ATTEND Nurse Practitioner Family
DX: I10 Essential (primary) hypertension (principal)
CPT/HCPCS: 36415; 80061; 80076

== ENCOUNTER → 2022-07-17 | Outpatient (CLI) | payer MEDICARE, BC ==
--- NOTE | 2022-07-17 13:04 | BD ---
EXAMINATION TYPE: Axial Bone Density DATE OF EXAM: 07/17/2022 COMPARISON: NONE CLINICAL HISTORY: 77 year old Female. ICD-10 CODE: M85.88 oth bne disorder Height: 66 Weight: 157.9 FRAX RISK QUESTIONS: Alcohol (3 or more units per day): no Family History (Parent hip fracture): no Glucocorticoids (More than 3mos): no (Ex: prednisone, prednisolone, methylprednisolone, dexamethasone, and hydrocortisone). History of Fracture in Adulthood: no Secondary Osteoporosis: 1. Type 1 Diabetes: no 2. Hyperthyroidism: no 3. Menopause before 45: 4. Malnutrition: no 5. Chronic liver disease: no Rheumatoid Arthritis: no Current Tobacco Use: no RISK FACTORS HISTORY OF: Surgery to Spine/Hip(right/left)/Wrist (right/left): yes lumbar spine L4and L5 When: around 2016 Family History of Osteoporosis: no Active: yes Diet low in dairy products/other sources of calcium: yes Postmenopausal woman: yes Lost more than 2 inches in height since high school: no MEDICATIONS: LEVOTHYROXINE- 1 1/2 YEARS Additional History: EXAM MEASUREMENTS: Bone mineral densitometry was performed using the HCDC System. Bone mineral density about the R hip (g/cm2): 0.885 Bone mineral density about the L hip (g/cm2): 0.807 T Score values are as follows: -----R Neck: -1.1 -----L Neck: -1.7 -----R Total: -2.3 -----L Total: -2.1 Bone mineral density has: decreased -2.1 % since study of: 08.07.2016 Bone mineral density about the L Wrist (g/cm2): 0.493 T Score values are as follows: -----Dist. R+U: -2.1 -----Prox. R+U: -2.7 -----Radius total: -3.0 Bone mineral density : baseline FRAX%s: The graph provided illustrates a 12.6% chance for a major osteoporotic fx and a 2.9% chance f or the hips probability for fx in 10 years time. IMPRESSION: Osteoporosis (T Score less than -2.5). There is increased fracture risk and therapy is usually indicated based on age. Re-Screen 1-2 years. NOTE: T-SCORE=SD OF THE YOUNG ADULT MEAN.
--- NOTE | 2022-07-17 17:10 | MM ---
Reason for Exam: Screening (asymptomatic). Last screening mammogram was performed 12 month(s) ago. Patient History: Menarche at age 11. First Full-Term at age 24. Left ovary removed at age 48. Right ovary removed at age 48. Hysterectomy at age 48. Postmenopausal. Patient has history of breast feeding. Patient used Estrogen for 3 years. Patient used Hormonal Contraceptives for 2 years. 1993, Benign Excisional Biopsy on the left side. Risk Values: Karishma 5 year model risk: 2.0%. NCI Lifetime model risk: 4.2%. Prior Study Comparison: 06/22/2019 Screening Mammogram, [facility]. 06/25/2020 Screening Mammogram, [facility]. 07/16/2021 Bilateral Screening Mammogram, [facility]. Tissue Density: There are scattered fibroglandular densities. Findings: Analyzed By CAD. Scattered benign calcifications are present bilaterally. There is a small area of increased density within the inferior left breast approximately 5:00 anterior position with indistinct borders. This appears to be an interval change. Additional workup is recommended. Impression views of the craniocaudal and mediolateral oblique views and a standard mediolateral view is recommended. Overall Assessment: Incomplete: need additional imaging evaluation, BI-RAD 0 Management: Diagnostic Mammogram of the left breast. A negative mammogram report should not preclude additional follow up of suspicious palpable abnormalities. Patient should continue monthly self breast exam. A clinical breast exam by your physician is recommended on an annual basis and results should be correlated with mammographic findings. Electronically signed and approved by: Nguyễn Cox D.O. Radiologis
== END | disposition home or self-care (01) ==
LOC: RADMAMWWP 09:32
PROVIDERS: ATTEND Obstetrics & Gynecology
DX: Z12.31 Encounter for screening mammogram for malignant neoplasm of breast (principal); M81.0 Age-related osteoporosis without current pathological fracture; Z78.0 Asymptomatic menopausal state; Z90.721 Acquired absence of ovaries, unilateral
CPT/HCPCS: 77063; 77067; 77080

== ENCOUNTER → 2022-07-21 | Outpatient (CLI) | payer MEDICARE, BC ==
--- NOTE | 2022-07-21 09:49 | MM ---
Reason for Exam: Additional evaluation requested from abnormal screening. Last screening mammogram was performed less than 1 month ago. Patient History: Menarche at age 11. First Full-Term at age 24. Left ovary removed at age 48. Right ovary removed at age 48. Hysterectomy at age 48. Postmenopausal. Patient has history of breast feeding. Patient used Estrogen for 3 years. Patient used Hormonal Contraceptives for 2 years. 1993, Benign Excisional Biopsy on the left side. Risk Values: Karishma 5 year model risk: 2.0%. NCI Lifetime model risk: 4.2%. Prior Study Comparison: 06/07/2018 Screening Mammogram, [facility]. 06/22/2019 Screening Mammogram, [facility]. 06/25/2020 Screening Mammogram, [facility]. 07/16/2021 Bilateral Screening Mammogram, [facility]. 07/17/2022 Bilateral MG 3D screening mammo w/cad, [facility]. Tissue Density: Left: There are scattered fibroglandular densities. Findings: Analyzed By CAD. Some benign-appearing round and linear calcifications redemonstrated. No distinct lesion persists on additional views. Overall Assessment: Benign, BI-RAD 2 Management: Screening Mammogram of both breasts in 1 year. Return to routine follow-up. Results were given to the patient verbally at the time of exam. Electronically signed and approved by: Hemal Pollard M.D.
== END | disposition home or self-care (01) ==
LOC: RADMAMWWP 09:14
PROVIDERS: ATTEND Obstetrics & Gynecology
DX: R92.8 Other abnormal and inconclusive findings on diagnostic imaging of breast (principal); Z78.0 Asymptomatic menopausal state; Z98.890 Other specified postprocedural states
CPT/HCPCS: 77065; G0279; 77061

== ENCOUNTER 2022-10-01 08:38 | Day surgery (SDC) | payer MEDICARE, BC ==
[2022-09-26 15:32] VITALS: BMI 25.0
[~2022-10-01 08:38] MED LIST changes: -FUROSEMIDE 10 MG/ML 2 ML VIAL IV ONE; +LACTATED RINGERS 1,000 ML IV SCH; +LIDOCAINE 1% (10MG/ML) FOR IV START INTRADERMA PRN; +ONDANSETRON 4 MG/2 ML VIAL IVP PRN
[2022-10-01] MEDS ORDERED: LACTATED RINGERS 1,000 ML IV ONE (10:13)
[2022-10-01 10:20] VITALS: TEMP 98
[2022-10-01] MEDS ORDERED: PROPOFOL 10 MG/ML 20 ML VIAL IV ONE (10:21)
[2022-10-01 11:15] VITALS: BP 152/72; PULSE 64; RESP 15
--- NOTE | 2022-10-01 11:28 | P.PCN ---
Date of Procedure: 10/01/22 Procedure(s) Performed: BRIEF HISTORY: Patient is a 77-year-old pleasant female scheduled for an elective colonoscopy as a part of screening for colon cancer/positive cologuard. Her last coloscopy was 11 years ago. PROCEDURE PERFORMED: Colonoscopy with snare polypectomy. PREOPERATIVE DIAGNOSIS: Screening for colon cancer/ Positive cologuard IV sedation per Anesthesia. PROCEDURE: After informed consent was obtained, the patient, was brought into the endoscopy unit. IV sedation was administered by Anesthesia under continuous monitoring. Digital rectal examination was normal. Initially the Olympus CF-160 flexible video colonoscope was then inserted in the rectum, gradually advanced into the cecum without any difficulty. Careful examination was performed as the scope was gradually being withdrawn. Ileocecal valve and the appendiceal orifice were visualized and appeared normal. Prep was excellent. Mucosa of the cecum, appeared normal. In the ascending colon there was a 1 cm broad-based polyp removed by snare polypectomy. In the transverse colon there was another 1.5 cm broad-based polyp removed by snare polypectomy. Rest of the ascending colon, transverse colon, appeared normal. In the descending colon there were 2 polyps measuring 5 mm in size removed by snare polypectomy. Scattered left-sided diverticulosis seen. Rest of the descending colon, sigmoid colon, and rectum appeared normal. Retroflexion was performed in the rectum and no lesions were seen. The patient tolerated the procedure well. IMPRESSION: 1 cm ascending colon polyp status post polypectomy 1.5 cm broad-based transverse colon polyp status post polypectomy 5 mm distal descending colon polyp status post polypectomy Sigmoid diverticulosis RECOMMENDATIONS: Findings of this examination were discussed with the patient as well as his family. She was advised to follow with the biopsy results. If the biopsy result adenoma she can have a repeat colonoscopy in 3 years.
== END 2022-10-01 11:32 | disposition home or self-care (01) ==
LOC: ORWHC2ENDO 08:38
PROVIDERS: ATTEND Internal Medicine Gastroenterology
DX: R19.5 Other fecal abnormalities (principal); D12.2 Benign neoplasm of ascending colon; D12.3 Benign neoplasm of transverse colon; K57.30 Diverticulosis of large intestine without perforation or abscess without bleeding; Z87.19 Personal history of other diseases of the digestive system
CPT/HCPCS: 88305; 45385; J2704

== ENCOUNTER → 2023-06-11 | Outpatient (CLI) | payer MEDICARE, BC, OTHER ==
--- NOTE | 2023-06-11 17:43 | CA ---
Transthoracic Echo Report Name: Collette Beaver Age: 78 Gender: F : 1945 Exam Date: 06/11/2023 11:26 Exam Location: [place] [facility] Ht (in): 66 Wt (lb): 149 Ordering Physician: Jose Cuenca DO Attending/Referring Phys: [employer] Director Elli Aguirre RDCS Procedure CPT: Indications: I35.9 NONRHEUMATIC AORTIC VALVE DISORDER, UNSPECIF Cardiac Hx: Technical Quality: Fair Contrast 1: Total Dose (mL): Contrast 2: Total Dose (mL): MEASUREMENTS (Male / Female) Normal Values 2D ECHO LV Diastolic Diameter PLAX 4.4 cm 4.2 - 5.9 / 3.9 - 5.3 cm LV Systolic Diameter PLAX 3.1 cm IVS Diastolic Thickness 1.5 cm 0.6 - 1.0 / 0.6 - 0.9 cm LVPW Diastolic Thickness 1.2 cm 0.6 - 1.0 / 0.6 - 0.9 cm LV Relative Wall Thickness 0.6 RV Internal Dim ED PLAX 3.0 cm LA Volume 46.6 cm??? 18 - 58 / 22 - 52 cm??? LA Volume Index 26.1 cm???/m??? 16 - 28 cm???/m??? M-MODE Aortic Root Diameter MM 3.8 cm LA Systolic Diameter MM 2.4 cm LA Ao Ratio MM 0.6 AV Cusp Separation MM 1.9 cm DOPPLER AV Peak Velocity 94.7 cm/s AV Peak Gradient 3.6 mmHg AV Mean Velocity 63.3 cm/s AV Mean Gradient 1.8 mmHg AV Velocity Time Integral 22.8 cm AI Peak Velocity 449.4 cm/s AI Peak Gradient 80.8 mmHg AI Pressure Half Time 540.2 ms LVOT Peak Velocity 85.1 cm/s LVOT Peak Gradient 2.9 mmHg LVOT Velocity Time Integral 23.5 cm MV Area PHT 2.3 cm??? Mitral E Point Velocity 51.8 cm/s Mitral A Point Velocity 69.1 cm/s Mitral E to A Ratio 0.8 MV Deceleration Time 336.3 ms MV E' Velocity 2.9 cm/s Mitral E to MV E' Ratio 18.1 TR Peak Velocity 245.6 cm/s TR Peak Gradient 24.1 mmHg Right Ventricular Systolic Press 27.6 mmHg FINDINGS Left Ventricle Moderately increased left ventricular wall thickness. Left ventricular cavity size normal. Normal left ventricular systolic function with no obvious regional wall motion abnormalities. Left ventricular ejection fraction is estimated at 55 %. Right Ventricle Normal right ventricular size and function. Right ventricular systolic pressure within normal limits. Right Atrium Normal right atrial size. Left Atrium Normal left atrial size. Mitral Valve Structurally normal mitral valve. Mild mitral regurgitation. Mild mitral annular calcification. Aortic Valve Trileaflet aortic valve. No aortic stenosis. Mild aortic regurgitation. Tricuspid Valve Structurally normal tricuspid valve. Mild tricuspid regurgitation. Pulmonic Valve Trace pulmonic regurgitation. Pericardium No pericardial effusion. Aorta Normal size aortic root and proximal ascending aorta. CONCLUSIONS Normal LV function Mild mitral regurgitation Mild aortic regurgitation Previewed by: Dr. Arthur Herrera MD (Electronically Signed) Final Date: 11 June 2023 17:42
== END | disposition home or self-care (01) ==
LOC: RADECHMAIN 11:12
PROVIDERS: ATTEND Family Medicine
DX: I08.0 Rheumatic disorders of both mitral and aortic valves (principal); I10 Essential (primary) hypertension
CPT/HCPCS: 93225; 93226; 93306

== ENCOUNTER → 2023-07-22 | Outpatient (CLI) | payer MEDICARE, BC, OTHER ==
--- NOTE | 2023-07-23 09:11 | MM ---
Reason for Exam: Screening (asymptomatic). Last screening mammogram was performed 12 month(s) ago. Patient History: Menarche at age 11. First Full-Term at age 24. Left ovary removed at age 48. Right ovary removed at age 48. Hysterectomy at age 48. Postmenopausal. Patient has history of breast feeding. Patient used Estrogen for 3 years. Patient used Hormonal Contraceptives for 2 years. 1992, Benign Excisional Biopsy on the left side. Paternal aunt had breast cancer. Risk Values: Karishma 5 year model risk: 2.0%. NCI Lifetime model risk: 3.9%. Prior Study Comparison: 07/16/2021 Bilateral Screening Mammogram, [facility]. 07/17/2022 Bilateral MG 3D screening mammo w/cad, [facility]. 07/21/2022 Left MG 3D work up w/cad , [facility]. Tissue Density: There are scattered fibroglandular densities. Findings: Analyzed By CAD. New nodular density upper slightly inner right breast at the 1:00 position 7 cm from the nipple. Additional views are recommended. Scattered benign calcifications are present. Overall Assessment: Incomplete: need additional imaging evaluation, BI-RAD 0 Management: Diagnostic Mammogram of the right breast. . Patient should continue monthly self-breast exams. A clinical breast exam by your physician is recommended on an annual basis. This exam should not preclude additional follow-up of suspicious palpable abnormalities. Note on Karishma scores and lifetime risk: 1. A Karishma score greater than 3% is considered moderate risk. If this is the case, consider specialist referral to assess eligibility for a risk reducing agent. 2. If overall lifetime risk for the development of breast cancer is 20% or higher, the patient may qualify for future screening with alternating mammogram and breast MRI. Electronically signed and approved by: Freddie Andrea M.D. Radiologis
== END | disposition home or self-care (01) ==
LOC: RADMAMWWP 11:12
PROVIDERS: ATTEND Obstetrics & Gynecology
DX: Z12.31 Encounter for screening mammogram for malignant neoplasm of breast (principal); Z78.0 Asymptomatic menopausal state; Z80.3 Family history of malignant neoplasm of breast
CPT/HCPCS: 77063; 77067

== ENCOUNTER → 2023-08-03 | Outpatient (CLI) | payer MEDICARE, BC, OTHER ==
--- NOTE | 2023-08-03 14:36 | MM ---
Reason for Exam: Additional evaluation requested from abnormal screening. Last screening mammogram was performed less than 1 month ago. Patient History: Menarche at age 11. First Full-Term at age 24. Left ovary removed at age 48. Right ovary removed at age 48. Hysterectomy at age 48. Postmenopausal. Patient has history of breast feeding. Patient used Estrogen for 3 years. Patient used Hormonal Contraceptives for 2 years. 1992, Benign Excisional Biopsy on the left side. Paternal aunt had breast cancer. Risk Values: Karishma 5 year model risk: 2.0%. NCI Lifetime model risk: 3.9%. Tissue Density: Right: There are scattered fibroglandular densities. Findings: Analyzed By CAD. No new suspicious masses, calcifications or distortions. Overall Assessment: Negative, BI-RAD 1 Management: Screening Mammogram of both breasts in 1 year. Electronically signed and approved by: Favian Cota DO
== END | disposition home or self-care (01) ==
LOC: RADMAMWWP 13:31
PROVIDERS: ATTEND Obstetrics & Gynecology
DX: R92.321 Mammographic fibroglandular density, right breast (principal); R92.8 Other abnormal and inconclusive findings on diagnostic imaging of breast; Z78.0 Asymptomatic menopausal state; Z80.3 Family history of malignant neoplasm of breast
CPT/HCPCS: 77065; G0279; 77061

== ENCOUNTER → 2024-08-25 | Outpatient (CLI) | payer MEDICARE, BC, OTHER ==
--- NOTE | 2024-08-26 12:15 | MM ---
Reason for Exam: Screening (asymptomatic). Last mammogram was performed 1 year(s) and 1 month(s) ago. Patient History: Menarche at age 11. First Full-Term at age 24. Left ovary removed at age 48. Right ovary removed at age 48. Hysterectomy at age 48. Postmenopausal. Patient has history of breast feeding. Patient used Estrogen for 3 years. Patient used Hormonal Contraceptives for 2 years. 1992, Benign Excisional Biopsy on the left side. Paternal aunt had breast cancer. Risk Values: Karishma 5 year model risk: 2.0%. NCI Lifetime model risk: 3.6%. Prior Study Comparison: 07/21/2022 Left MG 3D work up w/cad LT, [facility]. 07/22/2023 Bilateral MG 3D screening mammo w/cad, [facility]. 08/03/2023 Right MG 3D work up w/cad RT, [facility]. Tissue Density: There are scattered areas of fibroglandular density. Findings: Analyzed By CAD. There is no suspicious group of microcalcifications or new suspicious mass in either breast. Overall Assessment: Benign, BI-RAD 2 Management: Screening Mammogram of both breasts in 1 year. . Patient should continue monthly self-breast exams. A clinical breast exam by your physician is recommended on an annual basis. This exam should not preclude additional follow-up of suspicious palpable abnormalities. Note on Karishma scores and lifetime risk: 1. A Karishma score greater than 3% is considered moderate risk. If this is the case, consider specialist referral to assess eligibility for a risk reducing agent. 2. If overall lifetime risk for the development of breast cancer is 20% or higher, the patient may qualify for future screening with alternating mammogram and breast MRI. [facility], , 08/26/2024 12:12 PM. Electronically signed and approved by: Freddie Andrea M.D. Radiologis
== END | disposition home or self-care (01) ==
LOC: RADMAMWWP 14:19
PROVIDERS: ATTEND Family Medicine
DX: Z12.31 Encounter for screening mammogram for malignant neoplasm of breast (principal); R92.323 Mammographic fibroglandular density, bilateral breasts; Z80.3 Family history of malignant neoplasm of breast; Z78.0 Asymptomatic menopausal state; Z92.0 Personal history of contraception; Z90.722 Acquired absence of ovaries, bilateral
CPT/HCPCS: 77063; 77067